=== PATIENT | female | born 1960 | race American Indian/Alaskan Native ===

== ENCOUNTER 2019-07-04 06:25 | Day surgery (SDC) | payer MEDICARE ==
[2019-07-04] MEDS ORDERED: ECOTRIN PO NR (07:37)
[2019-07-04 07:57] LABS: Basophils # (Auto) 0.1 K/mm3 (0.0-0.1); Basophils % (Auto) 1.1 % (0.0-1.8); Eosinophils # (Auto) 0.3 K/mm3 (0.0-0.4); Eosinophils % (Auto) 4.4 % (0.0-4.3); Hemoglobin 12.3 gm/dl (10.1-14.3); Lymphocytes # (Auto) 2.3 K/mm3 (1.2-5.4); Lymphocytes % (Auto) 33.8 % (13.4-35.0); Mean Corpuscular HGB Conc 33 % (30-34); Mean Corpuscular Volume 91 fl (79-97); Monocytes # (Auto) 0.6 K/mm3 (0.0-0.8); Monocytes % (Auto) 8.5 % (0.0-7.3); Platelet Count 395 K/mm3 (140-440); Red Blood Count 4.04 M/mm3 (3.65-5.03)
[2019-07-04] MEDS ORDERED: NACL 0.9% 500 ML 500 ML IV SCH (08:00)
[2019-07-04] MEDS ORDERED: HEPARIN/NS 5000 UNIT/500ML(CATH LAB) 1,000 ML IR ONE (08:22)
[2019-07-04 08:23] LABS: INR 0.91 (0.87-1.13); Partial Thromboplastin Time 28.5 Sec. (24.2-36.6)
[2019-07-04] MEDS ORDERED: CALAN ONE (08:23)
[2019-07-04] MEDS ORDERED: XYLOCAINE 2% INFILTRATI ONE (08:23)
[2019-07-04] MEDS ORDERED: HEPARIN 10,000 UNITS/10 ML ONE (08:23)
[2019-07-04 08:36] LABS: BUN/Creatinine Ratio 20; Blood Urea Nitrogen 20 mg/dL (7-17); Calcium 10.7 mg/dL (8.4-10.2); Hemolysis Index 93
[2019-07-04] MEDS ORDERED: NITROGLYCERIN SYRINGE 3 ML ONE (08:48)
[2019-07-04] MEDS ORDERED: VERSED ONE (10:13)
[2019-07-04] MEDS ORDERED: SUBLIMAZE ONE (10:14)
--- NOTE | 2019-07-04 11:34 | Cardiac Catherization Report ---
ATTENDING PHYSICIAN: Ankur Martins M.D. PROCEDURES: 1. Left heart catheterization. 2. Left ventriculogram via hand injection. ESTIMATED BLOOD LOSS: Less than 30 mL. ESTIMATED CONTRAST USED: 50 mL. COMPLICATIONS: None. INDICATIONS FOR PROCEDURE: The patient is a 58-year-old hearing impaired female who presented with recurrent chest pain despite negative stress test or indeterminate stress test. Given that the patient continued to have recurrent chest pains, decided that cardiac catheterization should be performed. PROCEDURE IN DETAIL: The patient was brought to the cardiac catheterization lab in usual fasting state. The patient was prepped and draped in usual sterile fashion. A 2 mL of 1% lidocaine were injected around the right radial artery. Next, a 6-[place] sheath was placed into the right radial artery via modified Seldinger technique. Next, the [place] catheter was advanced over the wire across the aortic valve into left ventricle. Left ventricular pressures were measured. Left ventriculogram was performed via hand injection. Pullback pressure across the aortic valve was then measured. Next, the [place] catheter was removed over the wire and a JL4 catheter was advanced over the wire and engaged into the right coronary artery. Angiography was performed in multiple views. Next, the JR4 catheter was removed and an EBU 3.0 guide catheter was advanced over the wire and engaged into the left main coronary artery. Subsequently, the catheter was removed over the wire. Hemostasis was gained via manual compression. RESULTS: Left ventriculogram showed a normal ejection fraction of 65% without regional wall motion abnormalities. End-diastolic pressure measured 23 mmHg. Left ventricular pressure measured 140/0 mmHg and the aortic pressure measured 136/73 mmHg. RESULTS: Left main coronary artery is a short moderate caliber vessel that bifurcates into left anterior descending and left circumflex coronary arteries. There is no significant disease within the left main coronary artery. The left anterior descending coronary artery is a moderate caliber vessel that quickly tapers to a small caliber vessel in the mid segment. There is no significant disease in the left anterior descending coronary artery system. The left circumflex coronary artery is a moderate caliber nondominant vessel providing 3 obtuse marginal branches. There is no significant disease within the left circumflex coronary system. Right coronary artery, the right coronary artery is a moderate caliber dominant vessel with no significant disease. CONCLUSIONS: 1. No significant coronary artery disease in a right dominant system. 2. Preserved left ventricular function. RECOMMENDATIONS: Recommend continue medical therapy and further evaluation with noncardiac causes of chest pain as needed. [facility]# [id number] /INDRA
[2019-07-04 14:01] VITALS: BP 121/67
== END 2019-07-04 14:48 | disposition home or self-care (01) ==
LOC: CATHLABREC 06:25
PROVIDERS: ATTEND Internal Medicine Cardiovascular Disease
DX: R07.89 Other chest pain (principal); R94.31 Abnormal electrocardiogram [ECG] [EKG]; I10 Essential (primary) hypertension; I34.0 Nonrheumatic mitral (valve) insufficiency; E07.9 Disorder of thyroid, unspecified; E66.9 Obesity, unspecified; Z79.899 Other long term (current) drug therapy; Z79.84 Long term (current) use of oral hypoglycemic drugs; Z90.49 Acquired absence of other specified parts of digestive tract; Z98.890 Other specified postprocedural states; Z68.35 Body mass index [BMI] 35.0-35.9, adult; Z82.49 Family history of ischemic heart disease and other diseases of the circulatory system
CPT/HCPCS: 36415; 80048; 85025; 85610; 85730; 93010; 93458; 99156; 99157; C1887; C1894; J1644; J2250; J3010; J7040; 93005; Q9967

== ENCOUNTER 2022-03-17 16:31 | Observation (INO) | payer MEDICARE ==
--- NOTE | 2022-03-17 17:54 | XRay Report ---
CHEST 2 VIEWS INDICATION / CLINICAL INFORMATION: chest pain. COMPARISON: None available. FINDINGS: SUPPORT DEVICES: None. HEART / MEDIASTINUM: No significant abnormality. LUNGS / PLEURA: No significant pulmonary or pleural abnormality. No pneumothorax. ADDITIONAL FINDINGS: No significant additional findings. IMPRESSION: 1. No acute findings. Signer Name: Hreb Modi MD Signed: 03/17/2022 5:50 PM Workstation Name: [id number]
[2022-03-17] MEDS ORDERED: ASPIRIN 325 MG TAB PO ONE (21:18)
[2022-03-17 21:56] LABS: Basophils # (Auto) 0.1 K/mm3 (0.0-0.1); Basophils % (Auto) 0.7 % (0.0-1.8); Eosinophils # (Auto) 0.1 K/mm3 (0.0-0.4); Eosinophils % (Auto) 1.7 % (0.0-4.3); Hematocrit 35.8 % (30.3-42.9); Hemoglobin 11.4 gm/dl (10.1-14.3); Lymphocytes # (Auto) 2.2 K/mm3 (1.2-5.4); Lymphocytes % (Auto) 26.4 % (13.4-35.0); Mean Corpuscular HGB Conc 32 % (30-34); Mean Corpuscular Volume 78 fl (79-97); Monocytes # (Auto) 0.4 K/mm3 (0.0-0.8); Monocytes % (Auto) 4.7 % (0.0-7.3); Platelet Count 499 K/mm3 (140-440); Red Blood Count 4.58 M/mm3 (3.65-5.03); Red Cell Distribution Width 17.7 % (13.2-15.2)
[2022-03-17 22:16] LABS: Alanine Aminotransferase 11 units/L (7-56); Albumin 4.8 g/dL (3.9-5); BUN/Creatinine Ratio 23; Blood Urea Nitrogen 21 mg/dL (7-17); Calcium 10.2 mg/dL (8.4-10.2); Hemolysis Index 0
[2022-03-18] MEDS ORDERED: ASPIRIN 81 MG TAB CHEW PO ONE (02:23)
[2022-03-18] MEDS ORDERED: NITROGLYCERIN 0.4 MG TAB SUBL SL ONE (02:24)
--- NOTE | 2022-03-18 02:26 | Emergency Department Report ---
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 Patient presents with complaints of chest pain, retrosternal, pressure, non-radiating, 5/10, not worsened or relieved by anything, associated with SOB, palpitations. Denies diaphoresis, leg swelling, pain in her calves, recent travel, immobilization, surgery, hospitalization, sex HRT use. - Related Data Home Medications Medication Instructions Recorded Confirmed Last Taken Atorvastatin [Lipitor] 40 mg PO QHS 07/04/19 07/04/19 07/03/19 40 mg Cetirizine HCl [Cetirizine 5mg tab] 10 mg PO DAILY 07/04/19 07/04/19 07/03/19 10 mg Docusate Sodium-Senna Tablet 100 mg PO DAILY PRN 07/04/19 07/04/19 Unknown Dulera 100 Mcg/5 Mcg Inhaler 2 puff INHALATION BID PRN 07/04/19 07/04/19 07/03/19 2 Ergocalciferol (Vitamin D2) 1 cap PO DAILY 07/04/19 07/04/19 07/03/19 [Vitamin D2] 1 Fluticasone [Flonase] 2 sprays INNOSTRIL DAILY PRN 07/04/19 07/04/19 07/03/19 2 Levothyroxine Sodium Dilution 50 mcg PO DAILY 07/04/19 07/04/19 07/03/19 50 mcg Lisinopril/Hydrochlorothiazide 1 tab PO DAILY 07/04/19 07/04/19 07/03/19 [Zestoretic 10-12.5 mg Tablet] 1 Metoprolol Tartrate 12.5 mg PO BID 07/04/19 07/04/19 07/03/19 12.5mg Nitrostat 0.4 mg SL DAILY PRN 07/04/19 07/04/19 Unknown Omeprazole 40 mg PO DAILY 07/04/19 07/04/19 07/03/19 40 mg amLODIPine 2.5 mg PO DAILY 07/04/19 07/04/19 07/03/19 2.5mg metFORMIN [Glucophage] 500 mg PO BID 08/06/1507/04/19 07/03/19 500 mg Previous Rx's Medication Instructions Recorded Last Taken Type traMADoL [Ultram 50 MG tab] 50 mg PO Q6H PRN #10 tablet 03/18/22 Unknown Rx Allergies Allergy/AdvReac Type Severity Reaction Status Date / Time No Known Allergies Allergy Unverified 07/02/14 10:24 ED Review of Systems ROS: Stated complaint: ANGINA TEST Other details as noted in HPI Comment: All other systems reviewed and negative Constitutional: denies: chills, fever ED Past Medical Hx - Past Medical History Hx Hypertension: Yes Hx Diabetes: Yes Additional medical history: Hyperlipidemia, Obesity (BMI 31.3) - Surgical History Hx Cholecystectomy: Yes - Social History Smoking Status: Never Smoker - Medications Home Medications: Home Medications Medication Instructions Recorded Confirmed Last Taken Type Atorvastatin [Lipitor] 40 mg PO QHS 07/04/19 07/04/19 07/03/19 History 40 mg Cetirizine HCl [Cetirizine 5mg tab] 10 mg PO DAILY 07/04/19 07/04/19 07/03/19 History 10 mg Docusate Sodium-Senna Tablet 100 mg PO DAILY PRN 07/04/19 07/04/19 Unknown History Dulera 100 Mcg/5 Mcg Inhaler 2 puff INHALATION BID PRN 07/04/19 07/04/19 07/03/19 History 2 Ergocalciferol (Vitamin D2) 1 cap PO DAILY 07/04/19 07/04/19 07/03/19 History [Vitamin D2] 1 Fluticasone [Flonase] 2 sprays INNOSTRIL DAILY PRN 07/04/19 07/04/19 07/03/19 History 2 Levothyroxine Sodium Dilution 50 mcg PO DAILY 07/04/19 07/04/19 07/03/19 History 50 mcg Lisinopril/Hydrochlorothiazide 1 tab PO DAILY 07/04/19 07/04/19 07/03/19 History [Zestoretic 10-12.5 mg Tablet] 1 Metoprolol Tartrate 12.5 mg PO BID 07/04/19 07/04/19 07/03/19 History 12.5mg Nitrostat 0.4 mg SL DAILY PRN 07/04/19 07/04/19 Unknown History Omeprazole 40 mg PO DAILY 07/04/19 07/04/1919 History 40 mg amLODIPine 2.5 mg PO DAILY 07/04/19 07/04/19 07/03/19 History 2.5mg metFORMIN [Glucophage] 500 mg PO BID 07/04/19 07/04/19 07/03/19 History 500 mg traMADoL [Ultram 50 MG tab] 50 mg PO Q6H PRN #10 tablet 03/18/22 Unknown Rx ED Physical Exam - General Limitations: Other (deaf) General appearance: alert, in no apparent distress - Head Head exam: Present: atraumatic, normocephalic - Eye Eye exam: Present: PERRL, EOMI - ENT ENT exam: Present: mucous membranes moist, other (airway patent) - Neck Neck exam: Present: other (supple; no JVD) - Respiratory Respiratory exam: Present: other (good air entry, nml I:E,m CTAB, no use of FADUMO) - Cardiovascular Cardiovascular Exam: Present: regular rate. Absent: rubs, gallop - GI/Abdominal GI/Abdominal exam: Present: soft, normal bowel sounds. Absent: distended, tenderness - Extremities Exam Extremities exam: Present: other (no overty pitting lower extremity edema; non tender calves; neg Lakia's sign bilaterally) - Back Exam Back exam: Present: full ROM. Absent: tenderness - Neurological Exam Neurological exam: Present: alert, CN II-XII intact. Absent: motor sensory deficit - Skin Skin exam: Present: warm, normal color ED Course Vital Signs 03/17/22 03/18/22 03/18/22 16:43 02:40 03:10 Temperature 98.6 F Pulse Rate 69 84 81 Respiratory 20 12 Rate Blood Pressure 163/74 148/72 Blood Pressure 110/52 [Left] O2 Sat by Pulse 99 96 Oximetry ED Medical Decision Making - Lab Data Result diagrams: 03/18/22 05:37 03/19/22 05:21 Laboratory Tests 03/17/22 03/17/22 03/18/22 21:27 21:27 00:22 WBC 8.3 RBC 4.58 Hgb 11.4 Hct 35.8 MCV 78 L MCH 25 L MCHC 32 RDW 17.7 H Plt Count 499 H Lymph % (Auto) 26.4 [place] % (Auto) 4.7 Eos % (Auto) 1.7 Baso % (Auto) 0.7 Lymph # (Auto) 2.2 [place] # (Auto) 0.4 Eos # (Auto) 0.1 Baso # (Auto) 0.1 Seg Neutrophils % 66.5 Seg Neutrophils # 5.5 Sodium 135 L Potassium 3.8 Chloride 96.6 L Carbon Dioxide 22 Anion Gap 20 BUN 21 H Creatinine 0.9 Estimated GFR > 60 BUN/Creatinine Ratio 23 Glucose 96 Calcium 10.2 Total Bilirubin 0.30 AST 17 ALT 11 Alkaline Phosphatase 81 Troponin T < 0.010 < 0.010 Total Protein 9.2 H Albumin 4.8 Albumin/Globulin Ratio 1.1 CXR: no acute cardiopulmonary process EKG: HR 72m, SR, nml VA, wide QRS with upright RSR priming in V6 c/w LBBB (old c/w 06/2019) HEART score 5 - Medical Decision Making HEART score 5 diff dz: pneumonia, pneumothorax, symptomatic anemia ruled out. Need to r/o ACS. PE less likely. Received asprin 324 mg PO x 1, NTG 0.4 mg SL x 1. CP resolved. Critical care attestation.: If time is entered above; I have spent that time in minutes in the direct care of this critically ill patient, excluding procedure time. ED Disposition Clinical Impression: Chest pain Disposition: ADMITTED INPATIENT Is pt being admited?: Yes Does the pt Need Aspirin: No Condition: Stable Time of Disposition: 02:00 (Patient admitted to Dr. Lee. Sign out was called by me to the admitting physician)
[2022-03-18] MEDS ORDERED: MORPHINE 4 MG/1 ML INJ IV PRN (02:32)
[2022-03-18] MEDS ORDERED: DEXTROSE 50% IN WATER (25GM) 50 ML SYRINGE IV PRN (02:32)
[2022-03-18] MEDS ORDERED: DULERA INHALATION PRN (02:35)
[2022-03-18] MEDS ORDERED: DOCUSATE SODIUM PO PRN (02:35)
[2022-03-18] MEDS ORDERED: SENNA PO PRN (02:35)
--- NOTE | 2022-03-18 02:42 | History and Physical Report ---
History of Present Illness Date of examination: 03/18/22 Date of admission: 03/18/22 Chief complaint: Chest pain History of present illness: 61 years old female with past medical history of diabetes hypertension obesity and hyperlipidemia was brought to the emergency room because of chest pain, retrosternal, pressure, non-radiating, 5/10, not worsened or relieved by anything, associated with SOB, palpitations. Denies diaphoresis, leg swelling, pain in her calves, recent travel, immobilization, surgery, hospitalization, sex HRT use. In the emergency room patient initial troponin is negative troponin is 0.010. We are going to admit the patient we will put the patient on chest pain pathway will do Lexiscan and consult cardiology Past History Past Medical History: diabetes, hypertension, hyperlipidemia, other (Obesity) Past Surgical History: cholecystectomy Social history: no significant social history Family history: diabetes, hypertension Medications and Allergies Allergies Allergy/AdvReac Type Severity Reaction Status Date / Time No Known Allergies Allergy Unverified 07/02/14 10:24 Home Medications Medication Instructions Recorded Confirmed Last Taken Type Atorvastatin [Lipitor] 40 mg PO QHS 07/04/19 07/04/19 07/03/19 History 40 mg Cetirizine HCl [Cetirizine 5mg tab] 10 mg PO DAILY 07/04/19 07/04/19 07/03/19 History 10 mg Docusate Sodium-Senna Tablet 100 mg PO DAILY PRN 07/04/19 07/04/19 Unknown History Dulera 100 Mcg/5 Mcg Inhaler 2 puff INHALATION BID PRN 07/04/19 07/04/19 07/03/19 History 2 Ergocalciferol (Vitamin D2) 1 cap PO DAILY 07/04/19 07/04/19 07/03/19 History [Vitamin D2] 1 Fluticasone [Flonase] 2 sprays INNOSTRIL DAILY PRN 07/04/19 07/04/19 07/03/19 History 2 Levothyroxine Sodium Dilution 50 mcg PO DAILY 07/04/19 07/04/19 07/03/19 History 50 mcg Lisinopril/Hydrochlorothiazide 1 tab PO DAILY 07/04/19 07/04/19 07/03/19 History [Zestoretic 10-12.5 mg Tablet] 1 Metoprolol Tartrate 12.5 mg PO BID 07/04/19 07/04/19 07/03/19 History 12.5mg Nitrostat 0.4 mg SL DAILY PRN 07/04/19 07/04/19 Unknown History Omeprazole 40 mg PO DAILY 07/04/19 07/04/19 07/03/19 History 40 mg amLODIPine 2.5 mg PO DAILY 07/04/19 07/04/19 07/03/19 History 2.5mg metFORMIN [Glucophage] 500 mg PO BID 07/04/19 07/04/19 07/03/19 History 500 mg Review of Systems All systems: negative Cardiovascular: chest pain, shortness of breath, dyspnea on exertion Respiratory: shortness of breath, dyspnea on exertion Exam - Constitutional General appearance: Present: no acute distress, well-nourished - EENT Eyes: Present: PERRL ENT: hearing intact, clear oral mucosa - Neck Neck: Present: supple, normal ROM - Respiratory Respiratory effort: normal Respiratory: bilateral: diminished - Cardiovascular Heart Sounds: Present: S1 & S2. Absent: rub, click - Extremities Extremities: pulses symmetrical, No edema Peripheral Pulses: within normal limits - Abdominal General gastrointestinal: Present: soft, non-tender, non-distended, normal bowel sounds Female genitourinary: Present: normal - Integumentary Integumentary: Present: clear, warm, dry - Musculoskeletal Musculoskeletal: gait normal, strength equal bilaterally - Psychiatric Psychiatric: appropriate mood/affect, intact judgment & insight - Neurologic Neurologic: CNII-XII intact, moves all extremities HEART Score - HEART Score Troponin: Troponin T < 0.010 ng/mL (0.00-0.029) 03/18/22 00:22 Results - Labs CBC & Chem 7: 03/17/22 21:27 03/17/22 21:27 Labs: Laboratory Last Values WBC 8.3 K/mm3 (4.5-11.0) 03/17/22 21: RBC 4.58 M/mm3 (3.65-5.03) 03/17/22 21:27 Hgb 11.4 gm/dl (10.1-14.3) 03/17/22 21:27 Hct 35.8 % (30.3-42.9) 03/17/22 21:27 MCV 78 fl (79-97) L 03/17/22 21:27 MCH 25 pg (28-32) L 03/17/22 21: MCHC 32 % (30-34) 03/17/22: RDW 17.7 % (13.2-15.2) H 03/17/22: Plt Count 499 K/mm3 (140-440) H 03/17/22 21: Lymph % (Auto) 26.4 % (13.4-35.0) 03/17/22: [place] % (Auto) 4.7 % (0.0-7.3) 03/17/22 21: Eos % (Auto) 1.7 % (0.0-4.3) 03/17/22: Baso % (Auto) 0.7 % (0.0-1.8) 03/17/22: Lymph # (Auto) 2.2 K/mm3 (1.2-5.4) 03/17/22: [place] # (Auto) 0.4 K/mm3 (0.0-0.8) 03/17/22: Eos # (Auto) 0.1 K/mm3 (0.0-0.4) 03/17/22: Baso # (Auto) 0.1 K/mm3 (0.0-0.1) 03/17/22: Seg Neutrophils % 66.5 % (40.0-70.0) 03/17/22: Seg Neutrophils # 5.5 K/mm3 (1.8-7.7) 03/17/22: Sodium 135 mmol/L (137-145) L 03/17/22: Potassium 3.8 mmol/L (3.6-5.0) 03/17/22: Chloride 96.6 mmol/L (98-107) L 03/17/22: Carbon Dioxide 22 mmol/L (22-30) 03/17/22: Anion Gap 20 mmol/L 03/17/22 21: BUN 21 mg/dL (7-17) H 03/17/22: Creatinine 0.9 mg/dL (0.6-1.2) 03/17/22: Estimated GFR > 60 ml/min 03/17/22: BUN/Creatinine Ratio 23 % 03/17/22 21:27 Glucose 96 mg/dL (65-100) 03/17/22 21:27 Calcium 10.2 mg/dL (8.4-10.2) 03/17/22 21:27 Total Bilirubin 0.30 mg/dL (0.1-1.2) 03/17/22 21:27 AST 17 units/L (5-40) 03/17/22 21: ALT 11 units/L (7-56) 03/17/22 21:27 Alkaline Phosphatase 81 units/L (35-129) 03/17/22 21:27 Troponin T < 0.010 ng/mL (0.00-0.029) 03/18/22 00:22 Total Protein 9.2 g/dL (6.3-8.2) H 03/17/22 21: Albumin 4.8 g/dL (3.9-5) 03/17/22 21: Albumin/Globulin Ratio 1.1 % 03/17/22 21:27 - Imaging and Cardiology Chest x-ray: report reviewed Assessment and Plan VTE prophylaxis?: Chemical Plan of care discussed with patient/family: Yes - Patient Problems (1) Acute coronary syndrome Current Visit: Yes Status: Acute Plan to address problem: Admit the patient to the medical telemetry. Aspirin 325 mg p.o. daily. Lipitor 40 mg p.o. daily. Nitroglycerin as needed. We do the serial cardiac enzyme. Lexiscan and cardiology consult (2) Hypertension Current Visit: Yes Status: Acute Plan to address problem: Amlodipine 2.5 mg p.o. daily. Lisinopril/hydrochlorothiazide 10/12.5 mg p.o. daily (3) Hyperlipidemia Current Visit: Yes Status: Acute Plan to address problem: Lipitor 40 mg p.o. daily. We will recheck the lipid panel (4) Diabetes Current Visit: Yes Status: Acute Plan to address problem: Accu-Chek every 6 hours with Humalog moderate dose coverage. Diabetic education (5) Obesity Current Visit: Yes Status: Acute Plan to address problem: We counseled the patient regarding weight reduction (6) DVT prophylaxis Current Visit: Yes Status: Acute Plan to address problem: Heparin 5000 units subcu every 12 hours for DVT prophylaxis. Omeprazole 20 mg p.o. daily for GI prophylaxis. Patient is a full code
[2022-03-18] MEDS ORDERED: SODIUM CHLORIDE 0.45% 1000 ML 1,000 ML IV SCH (03:00)
[2022-03-18] MEDS ORDERED: ACETAMINOPHEN 325 MG TAB PO PRN (03:00)
[2022-03-18] MEDS ORDERED: NITROGLYCERIN 0.4 MG TAB SUBL SL PRN (03:00)
[2022-03-18] MEDS: traMADol 50 MG TAB PO PRN ×3 (04:17→21:50)
[2022-03-18] MEDS: LEVOTHYROXINE 50 MCG TAB PO SCH (06:09)
[2022-03-18 06:12] LABS: Basophils # (Auto) 0.1 K/mm3 (0.0-0.1); Basophils % (Auto) 0.8 % (0.0-1.8); Eosinophils # (Auto) 0.1 K/mm3 (0.0-0.4); Eosinophils % (Auto) 0.7 % (0.0-4.3); Hematocrit 34.6 % (30.3-42.9); Hemoglobin 10.9 gm/dl (10.1-14.3); Lymphocytes # (Auto) 1.2 K/mm3 (1.2-5.4); Mean Corpuscular HGB Conc 32 % (30-34); Mean Corpuscular Volume 79 fl (79-97); Monocytes # (Auto) 0.7 K/mm3 (0.0-0.8); Platelet Count 459 K/mm3 (140-440); Red Blood Count 4.39 M/mm3 (3.65-5.03); Red Cell Distribution Width 17.9 % (13.2-15.2)
[2022-03-18 06:35] LABS: BUN/Creatinine Ratio 21; Blood Urea Nitrogen 21 mg/dL (7-17); Hemolysis Index 2
[2022-03-18] MEDS: INSULIN LISPRO 100 UNIT/ML SUB-Q SCH ×2 (06:49→12:02)
[2022-03-18] MEDS ORDERED: REGADENOSON 0.4 MG/5 ML INJ IV ONE (07:48)
[2022-03-18] MEDS: HEPARIN 5,000 UNIT/1 ML VIAL SUB-Q SCH ×3 (09:09→23:00)
[2022-03-18] MEDS ORDERED: LEVOTHYROXINE SODIUM 50 MCG PO SCH (10:00)
[2022-03-18] MEDS ORDERED: HEPARIN 5,000 UNIT/1 ML VIAL SUB-Q SCH (10:00)
[2022-03-18] MEDS ORDERED: NON-FORMULARY EACH (Omeprazole [Omeprazole] 40 MG Capsule.Dr) PO SCH (10:00)
[2022-03-18] MEDS ORDERED: NON-FORMULARY EACH (Lisinopril/Hydrochlorothiazide [Zestoretic 10-12.5 Mg Tablet] 1 EACH T PO SCH (10:00)
[2022-03-18] MEDS ORDERED: METOPROLOL TARTRATE 12.5 MG PO SCH (10:00)
[2022-03-18] MEDS ORDERED: SENNOSIDES/DOCUSATE SODIUM 8.6/50 MG TAB PO PRN (10:00)
--- NOTE | 2022-03-18 10:18 | Consultation ---
History of Present Illness Consult date: 03/18/22 Consult reason: chest pain History of present illness: Patient is a 61-year-old woman with chronic hypertension who is also hearing impaired. She presented to the emergency room, with poorly characterized, atypical and nonexertional chest pain. She was admitted for further evaluation. ECG on presentation was unremarkable, and serial troponin levels x3 were negative. She was ordered for a Lexiscan stress test by the medical service. It will be recalled that just 2 years ago, a cardiac catheterization done at this hospital reported angiographically normal coronary arteries. Left ventricular systolic function was normal with ejection fraction of 65% and left ventricle angiography. Past History Past Medical History: diabetes, hypertension, hyperlipidemia Past Surgical History: cholecystectomy Social history: no significant social history Family history: diabetes, hypertension Medications and Allergies Allergies Allergy/AdvReac Type Severity Reaction Status Date / Time No Known Allergies Allergy Unverified 07/02/14 10:24 Home Medications Medication Instructions Recorded Confirmed Last Taken Type Atorvastatin [Lipitor] 40 mg PO QHS 07/04/19 07/04/19 07/03/19 History 40 mg Cetirizine HCl [Cetirizine 5mg tab] 10 mg PO DAILY 07/04/19 07/04/19 07/03/19 History 10 mg Docusate Sodium-Senna Tablet 100 mg PO DAILY PRN 07/04/19 07/04/19 Unknown History Dulera 100 Mcg/5 Mcg Inhaler 2 puff INHALATION BID PRN 07/04/19 07/04/19 07/03/19 History 2 Ergocalciferol (Vitamin D2) 1 cap PO DAILY 07/04/19 07/04/19 07/03/19 History [Vitamin D2] 1 Fluticasone [Flonase] 2 sprays INNOSTRIL DAILY PRN 07/04/19 07/04/19 07/03/19 History 2 Levothyroxine Sodium Dilution 50 mcg PO DAILY 07/04/19 07/04/19 07/03/19 History 50 mcg Lisinopril/Hydrochlorothiazide 1 tab PO DAILY 07/04/19 07/04/19 07/03/19 History [Zestoretic 10-12.5 mg Tablet] 1 Metoprolol Tartrate 12.5 mg PO BID 07/04/19 07/04/19 07/03/19 History 12.5mg Nitrostat 0.4 mg SL DAILY PRN 07/04/19 07/04/19 Unknown History Omeprazole 40 mg PO DAILY 07/04/19 07/04/19 07/03/19 History 40 mg amLODIPine 2.5 mg PO DAILY 07/04/19 07/04/19 07/03/19 History 2.5mg metFORMIN [Glucophage] 500 mg PO BID 07/04/19 07/04/19 07/03/19 History 500 mg Active Meds: Active Medications Acetaminophen (Acetaminophen 325 Mg Tab) 650 mg PO Q6H PRN PRN Reason: Pain, Mild (1-3) Amlodipine Besylate (Amlodipine 5 Mg Tab) 2.5 mg PO DAILY [facility] Aspirin (Aspirin Ec 81 Mg Tab) 81 mg PO QDAY [facility] Atorvastatin Calcium (Atorvastatin 40 Mg Tab) 40 mg PO QHS [facility] Dextrose (Dextrose 50% In Water (25gm) 50 Ml Syringe) 50 ml IV Q30MIN PRN; Protocol PRN Reason: Hypoglycemia Heparin Sodium (Porcine) (Heparin 5,000 Unit/1 Ml Vial) 5,000 unit SUB-Q Q8HR [facility] Hydrochlorothiazide (Hydrochlorothiazide 12.5 Mg Cap) 12.5 mg PO QDAY [facility] Insulin Human Lispro (Insulin Lispro 100 Unit/Ml) 0 unit SUB-Q Q6HR [facility]; Protocol Last Admin: 03/18/22 06:49 Dose: Not Given Levothyroxine Sodium (Levothyroxine 50 Mcg Tab) 50 mcg PO DAILY@0600 [facility] Last Admin: 03/18/22 06:09 Dose: 50 mcg Lisinopril (Lisinopril 10 Mg Tab) 10 mg PO QDAY [facility] Metoprolol Tartrate (Metoprolol Tartrate 25 Mg Tab) 12.5 mg PO BID [facility] Miscellaneous Medication (Dulera 100 Mcg/5 Mcg Inhaler) 2 puff INHALATION BID PRN PRN Reason: Dyspnea Morphine Sulfate (Morphine 4 Mg/1 Ml Inj) 2 mg IV Q5MIN PRN PRN Reason: Chest Pain unrelieved by NTG Nitroglycerin (Nitroglycerin 0.4 Mg Tab Subl) 0.4 mg SL Q5M PRN PRN Reason: Chest Pain Pantoprazole Sodium (Pantoprazole 40 Mg Tab) 40 mg PO DAILY [facility] Senna/Docusate Sodium (Sennosides/Docusate Sodium 8.6/50 Mg Tab) 1 tab PO DAILY PRN PRN Reason: CONSTIPATION Sodium Chloride (Sodium Chloride 0.9% 10 Ml Flush Syringe) 10 ml IV PRN PRN PRN Reason: LINE FLUSH Tramadol HCl (Tramadol 50 Mg Tab) 50 mg PO Q6H PRN PRN Reason: Pain, Moderate (4-6) Last Admin: 03/18/22 04:17 Dose: 50 mg Review of Systems Cardiovascular: chest pain, no orthopnea, no palpitations, no rapid/irregular heart beat, no edema, no syncope, no lightheadedness, no shortness of breath Physical Examination Vital Signs Temp Pulse Resp BP Pulse Ox 98.6 F 69 20 163/74 99 03/17/22 16:43 03/17/22 16:43 03/17/22 16:43 03/17/22 16:43 03/17/22 16:43 General appearance: no acute distress HEENT: Positive: PERRL Neck: Positive: neck supple Cardiac: Positive: Reg Rate and Rhythm Lungs: Positive: clear to auscultation Neuro: Positive: Grossly Intact Abdomen: Positive: Soft Female genitourinary: deferred Skin: Positive: Clear Extremities: Absent: edema Results 03/18/22 05:37 03/18/22 05:37 Cardiac Enzymes 03/17/22 Range/Units 21:27 AST 17 (5-40) units/L CBC 03/17/22 03/18/22 Range/Units 21:27 05:37 WBC 8.3 8.3 (4.5-11.0) K/mm3 RBC 4.58 4.39 (3.65-5.03) M/mm3 Hgb 11.4 10.9 (10.1-14.3) gm/dl Hct 35.8 34.6 (30.3-42.9) % Plt Count 499 H 459 H (140-440) K/mm3 Lymph # (Auto) 2.2 1.2 (1.2-5.4) K/mm3 [place] # (Auto) 0.4 0.7 (0.0-0.8) K/mm3 Eos # (Auto) 0.1 0.1 (0.0-0.4) K/mm3 Baso # (Auto) 0.1 0.1 (0.0-0.1) K/mm3 Comprehensive Metabolic Panel 03/17/22 03/18/22 Range/Units 21:27 05:37 Sodium 135 L 134 L (137-145) mmol/L Potassium 3.8 3.6 (3.6-5.0) mmol/L Chloride 96.6 L 95.9 L (98-107) mmol/L Carbon Dioxide 22 20 L (22-30) mmol/L BUN 21 H 21 H (7-17) mg/dL Creatinine 0.9 1.0 (0.6-1.2) mg/dL Glucose 96 144 H (65-100) mg/dL Calcium 10.2 10.0 (8.4-10.2) mg/dL AST 17 (5-40) units/L ALT 11 (7-56) units/L Alkaline Phosphatase 81 (35-129) units/L Total Protein 9.2 H (6.3-8.2) g/dL Albumin 4.8 (3.9-5) g/dL EKG interpretations - Telemetry EKG Rhythm: Sinus Rhythm Assessment and Plan - Patient Problems (1) Chest pain Current Visit: Yes Status: Acute Plan to address problem: Chest pain is atypical, EKG and serial troponin levels are negative. The p atient underwent a cardiac catheterization just 2 years ago that reported normal coronary arteries. She has been recommended for a Lexiscan stress test by the medical service, which will be completed. Low suspicion for a coronary etiology of current chest pain.
--- NOTE | 2022-03-18 10:33 | Electrocardiograph Report ---
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
--- NOTE | 2022-03-18 10:38 | Electrocardiograph Report ---
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
--- NOTE | 2022-03-18 12:16 | Nuclear Medicine Report ---
APPROVED REPORT Exam: Nuclear Stress Test Indication: Chest pain BMI: 0 Stress Test Details HR Max Heart Rate (APMHR): 157 bpm Target HR (85% APMHR): 133 bpm BP ECG Resting ECG: Sinus Rhythm Stress ECG: Sinus Rhythm ST Change: None Arrhythmia: None Recovery ECG: Sinus Rhythm Recovery ST Change: None Recovery Arrhythmia: None Stress ECG Conclusion No chest pain, no ST changes of ischemia with pharmacologic stress. Myocardial perfusion images are pending for final test interpretation. NM EXAM: Myocardial Perfusion REST/STRESS Imaging Protocol: Rest Tc-99m/Stress Tc-99m 1 day Resting Data Rest SPECT myocardial perfusion imaging was performed in supine position 45 minutes following the intravenous injection of 10 mCi of Tc-99m Myoview. Time of rest injection: 729 Date: 03/18/2022 Pharmacologic Stress Pharmacologic stress test was performed by injecting Regadenoson 0.4 mg IV push followed by the intravenous injection of 28 mCi of Tc-99m Myoview. Time of stress injection: 11:22:09 Date: 03/18/2022 Gated Stress SPECT was performed 30 minutes after stress injection. The images were gated to evaluate regional wall motion and calculate left ventricular ejection fraction. Study Data TID = 0.98. Normal rest and stress myocardial perfusion scan. Wall Motion Normal left ventricular systolic function, ejection fraction 75%. Nuclear Conclusion ECG Findings: negative for ischemia Clinical Findings: negative for ischemia Nuclear Findings: negative for ischemia Left Ventricular Function: normal Risk Study: low Normal myocardial perfusion scan on rest and stress images. Normal left ventricular systolic function, ejection fraction 75%. Normal study. Conclusion No chest pain, no ST changes of ischemia with pharmacologic stress. Myocardial perfusion images are pending for final test interpretation.
--- NOTE | 2022-03-18 12:17 | Event Note ---
Date: 03/18/22 Lexiscan thallium stress test shows normal myocardial perfusion on both rest and stress images, normal left ventricular systolic function, ejection fraction 75%. Normal study. Cardiac chest pain work-up is completed.
--- NOTE | 2022-03-18 12:47 | Discharge Summary ---
Providers - Providers Date of Admission: 03/18/22 02:33 Date of discharge: 03/18/22 Attending physician: BRANNON LEVY MD 03/18/22 Consult to Cardiac Rehabilitation [CONS] Routine Reason For Exam: Phase I 03/18/22 02:33 Consult to Dietitian/Nutrition [CONS] Routine Physician Instructions: Reason For Exam: Reason for Consult: Diet education Primary care physician: SUSAN HOLLIDAY MD Hospitalization Reason for admission: Acute coronary syndrome Condition: Stable Pertinent studies: Reviewed. Procedures: Lexiscan stress test Hospital course: Patient 61-year-old female past medical history of hypothyroidism, yfw-rasdguc-ugzsrwiop type 2 diabetes mellitus, GERD, allergic rhinitis, vitamin D deficiency, constipation, hyperlipidemia, hypertension, and obesity who presented with retrosternal chest pain rated 5/10 that is not radiating, not worsened or relieved with rest or exertion, palpitations, and associated shortness of breath. In the emergency department the patient was found to be hemodynamically stable. Due to concerns for acute coronary syndrome, the patient was admitted for chest pain work-up. Patient's troponins were negative x3. Patient underwent a Lexiscan stress test that was unremarkable for reversible ischemia and revealing normal LV systolic function and EF 75%. Ultimately study is normal. Approximately 2 years ago, patient underwent a left heart catheterization at the same hospital that revealed an angiographically normal coronary arteries. Patient is medically clear for discharge. Disposition: 01 HOME / SELF CARE / HOMELESS Final Discharge Diagnosis (Prints w/discharge instructions): Atypical chest pain, hypertension, hyperlipidemia, jww-mzvtysi-pycosfzmi type 2 diabetes mellitus, obesity, hypothyroidism, allergic rhinitis, vitamin D deficiency, constipation Time spent for discharge: 45 min Core Measure Documentation - Palliative Care Palliative Care/ Comfort Measures: Not Applicable - Core Measures Any of the following diagnoses?: none Exam - Constitutional Vitals: Temp Pulse Resp BP Pulse Ox 97.9 F 78 18 144/78 99 03/18/22 12:22 03/18/22 12:22 03/18/22 12:22 03/18/22 12:03/18/22 12:22 General appearance: Present: no acute distress, well-nourished, obese - EENT Eyes: Present: PERRL, EOM intact ENT: clear oral mucosa, dentition normal, other (Deaf) - Neck Neck: Present: supple, normal ROM - Respiratory Respiratory effort: normal Respiratory: bilateral: CTA - Cardiovascular Rhythm: regular Heart Sounds: Present: S1 & S2 - Extremities Extremities: no ischemia, pulses intact, pulses symmetrical, No edema, normal temperature, normal color Peripheral Pulses: within normal limits - Abdominal General gastrointestinal: Present: soft, non-tender, non-distended, normal bowel sounds Female genitourinary: Present: deferred - Rectal Rectal Exam: deferred - Integumentary Integumentary: Present: clear, warm, dry - Musculoskeletal Musculoskeletal: generalized weakness - Psychiatric Psychiatric: appropriate mood/affect, intact judgment & insight, memory intact, cooperative - Neurologic Neurologic: CNII-XII intact - Allied Health Allied health notes reviewed: nursing Plan Activity: advance as tolerated Diet: low salt, diabetic Additional Instructions: Patient 61-year-old female past medical history of hypothyroidism, xqp-pdaqqso-yyatfqmwy type 2 diabetes mellitus, GERD, allergic rhinitis, vitamin D deficiency, constipation, hyperlipidemia, hypertension, and obesity who presented with retrosternal chest pain rated 5/10 that is not radiating, not worsened or relieved with rest or exertion, palpitations, and associated shortness of breath. In the emergency department the patient was found to be hemodynamically stable. Due to concerns for acute coronary syndrome, the patient was admitted for chest pain work-up. Patient's troponins were negative x3. Patient underwent a Lexiscan stress test that was unremarkable for reversible ischemia and revealing normal LV systolic function and EF 75%. Ultimately study is normal. Approximately 2 years ago, patient underwent a left heart catheterization at the same hospital that revealed an angiographically normal coronary arteries. Patient is medically clear for discharge. Care Plan Goals: Patient is medically cleared for discharge. Assessment: Patient 61-year-old female past medical history of hypothyroidism, gnu-mvmwfkt-cbkrqocnm type 2 diabetes mellitus, GERD, allergic rhinitis, vitamin D deficiency, constipation, hyperlipidemia, hypertension, and obesity who presented with retrosternal chest pain rated 5/10 that is not radiating, not worsened or relieved with rest or exertion, palpitations, and associated shortness of breath. In the emergency department the patient was found to be hemodynamically stable. Due to concerns for acute coronary syndrome, the patient was admitted for chest pain work-up. Patient's troponins were negative x3. Patient underwent a Lexiscan stress test that was unremarkable for reversible ischemia and revealing normal LV systolic function and EF 75%. Ultimately study is normal. Approximately 2 years ago, patient underwent a left heart catheterization at the same hospital that revealed an angiographically normal coronary arteries. Patient is medically clear for discharge. Follow up with: SUSAN HOLLIDAY MD [Primary Care Provider] - 3-5 Days Prescriptions: traMADoL [Ultram 50 MG tab] 50 mg PO Q6H PRN #10 tablet PRN Reason: Pain, Moderate (4-6)
[2022-03-18] MEDS: LISINOPRIL 10 MG TAB PO SCH (13:03)
[2022-03-18] MEDS: METOPROLOL TARTRATE 25 MG TAB PO SCH ×2 (13:04→21:50)
[2022-03-18] MEDS: PANTOPRAZOLE 40 MG TAB PO SCH (13:05)
[2022-03-18] MEDS: amLODIPine 5 MG TAB PO SCH (13:07)
[2022-03-18] MEDS: hydroCHLOROthiazide 12.5 MG CAP PO SCH (13:09)
--- NOTE | 2022-03-18 17:14 | Cat Scan Report ---
CTA CHEST WITH CONTRAST INDICATION / CLINICAL INFORMATION: Evaluate for pulmonary embolism. TECHNIQUE: Axial CT images were obtained through the chest after injection of IV contrast. 3 plane MA P and/or 3D reconstructions were produced. All CT scans at this location are performed using CT dose reduction for ALARA by means of automated exposure control. COMPARISON: None available. FINDINGS: PULMONARY ARTERIES: No pulmonary emboli. THORACIC AORTA: No significant abnormality. HEART: Enlarged CORONARY ARTERY CALCIFICATION: None. MEDIASTINUM / RAMY: No significant abnormality. PLEURA: No pleural effusion. No pneumothorax. LUNGS: Significant respiratory motion artifact degrades evaluation. Allowing for limitation, No acute air space or interstitial disease. ADDITIONAL FINDINGS: There are a few mildly enlarged axillary lymph nodes bilaterally nearly all of w hich demonstrate a normal fatty hilum. Large and left measures approximately 1 cm in short axis dimen katie. Largest on the right measures approximately 0.9 cm in short axis dimension. UPPER ABDOMEN: Simple renal cyst upper pole right kidney measures 5.4 cm. SKELETAL STRUCTURES: No significant osseous abnormality. IMPRESSION: 1. No CT evidence for pulmonary embolism. 2. Allowing for patient respiratory motion artifact, no acute intrathoracic abnormality. 3. Mildly enlarged axillary lymph nodes bilaterally as above, nonspecific. Signer Name: Solis Forbes MD Signed: 03/18/2022 5:10 PM Workstation Name: [employer]
[2022-03-19] MEDS: INSULIN LISPRO 100 UNIT/ML SUB-Q SCH ×3 (00:22→06:14)
[2022-03-19] MEDS: LEVOTHYROXINE 50 MCG TAB PO SCH (06:13)
[2022-03-19] MEDS: HEPARIN 5,000 UNIT/1 ML VIAL SUB-Q SCH (06:14)
[2022-03-19 06:25] LABS: Calcium 9.7 mg/dL (8.4-10.2)
[2022-03-19] MEDS ORDERED: ARFORMOTEROL 15 MCG/2 ML NEBU IH SCH (08:00)
[2022-03-19] MEDS ORDERED: BUDESONIDE 0.5 MG/2 ML NEBU IH SCH (08:00)
[2022-03-19] MEDS: hydroCHLOROthiazide 12.5 MG CAP PO SCH (09:52)
[2022-03-19] MEDS: METOPROLOL TARTRATE 25 MG TAB PO SCH (09:52)
[2022-03-19] MEDS: PANTOPRAZOLE 40 MG TAB PO SCH (09:52)
[2022-03-19] MEDS: LISINOPRIL 10 MG TAB PO SCH (09:53)
[2022-03-19] MEDS: amLODIPine 5 MG TAB PO SCH (09:53)
[2022-03-19] MEDS ORDERED: ASPIRIN EC 325 MG TAB PO SCH ×2 (10:00)
[2022-03-19] MEDS ORDERED: ASPIRIN EC 81 MG TAB PO SCH (10:00)
[2022-03-19] MEDS: traMADol 50 MG TAB PO PRN (10:01)
--- NOTE | 2022-03-19 10:14 | Electrocardiograph Report ---
[facility] Test Date: 2022-03-18 Test Time: 10:50:51 Pat Name: GERMAN RALPH Department: Room: A466 1 Gender: F Soup Person: HAI : 1960 Requested By: NATIVIDAD ROD Order Number: [id number] Reading MD: Frankie Childers Measurements Intervals [place] Rate: 66 P: 51 DE: 176 QRS: -32 QRSD: 153 T: 128 QT: 451 QTc: 473 Interpretive Statements Sinus rhythm Left bundle branch block ST elevation secondary to IVCD Compared to ECG 03/18/2022 07:02:29 Intraventricular conduction delay now present ST (T wave) deviation now present Electronically Signed On 03-19-2022 10:14:00 EDT by Frankie Childers
[2022-03-19 12:20] VITALS: BP 119/50
== END 2022-03-19 13:42 | disposition home or self-care (01) ==
LOC: ED 16:31 → INTOOBSV 03-18 02:33 → 4A 03-18 02:33
PROVIDERS: ADMIT Hospitalist; ATTEND Student in an Organized Health Care Education/Training Program
DX: I24.9 Acute ischemic heart disease, unspecified (principal); I10 Essential (primary) hypertension; E11.9 Type 2 diabetes mellitus without complications; E66.9 Obesity, unspecified; E78.5 Hyperlipidemia, unspecified; Z90.49 Acquired absence of other specified parts of digestive tract; Z79.899 Other long term (current) drug therapy; Z98.890 Other specified postprocedural states; Z79.84 Long term (current) use of oral hypoglycemic drugs; Z68.31 Body mass index [BMI] 31.0-31.9, adult
CPT/HCPCS: 36415; 71046; 71275; 78452; 80048; 80053; 82962; 84484; 85025; 85379; 93005; 93017; 94640; 94760; 96372; 99285; A9502; G0378; J1644; J2785; J7030; Q9967; J3490